=== PATIENT | female | born 2000 | race Two or more races ===

== ENCOUNTER 2021-11-23 13:10 | Observation (INO) | payer SELFPAY ==
[~2021-11-23] VITALS: Ht 167.6 cm; Wt 114.8 kg
[2021-11-23 13:12] VITALS: BP 146/67
[2021-11-23 14:42] LABS: Basophils # (auto) 0 10 ^3/uL (0-0.2); Basophils % (auto) 0.2 % (0.0-2.0); Eosinophils # (auto) 0.2 10 ^3/uL (0-0.8); Eosinophils % (auto) 1.4 % (0.0-7.0); Hematocrit 36.2 % (36.0-46.0); Hemoglobin 12.2 g/dL (12.2-16.2); Lymphocytes # (auto) 2.4 10 ^3/uL (0.4-5.4); Lymphocytes % (auto) 21.6 % (10.0-50.0); Mean Corpuscular Hemoglobin 29.8 pg (28.0-32.0); Mean Corpuscular Hgb Conc. 33.8 g/dL (32.0-36.0); Mean Corpuscular Volume 88.1 fL (80.0-100.0); Monocytes # (auto) 0.8 10 ^3/uL (0-1.3); Monocytes % (auto) 7.5 % (0.0-12.0); Neutrophils # (auto) 7.6 10 ^3/uL (1.6-8.6); Neutrophils % (auto) 69.3 % (37.0-80.0); Red Blood Cells 4.11 10^6/uL (4.0-5.20); Red Cell Distribution Width 14.2 % (11.8-14.3); White Blood Cell 10.9 10^3/uL (4.4-10.8)
[2021-11-23 14:57] LABS: Albumin 2.7 g/dL (3.4-5.0); Calcium 9.2 mg/dL (8.5-10.1); Potassium 3.8 mmol/L (3.5-5.1)
[2021-11-23 14:58] LABS: Urine Bacteria FEW /hpf (None Seen); Urine Blood Negative /uL (Negative); Urine Mucus FEW (None Seen); Urine Specific Gravity 1.027 (1.001-1.035); Urine WBC 2 /hpf (0 - 5)
[2021-11-23 15:00] LABS: BUN/Creatinine Ratio 15.6; Bilirubin, Total 0.1 mg/dL (0.2-1.0); Total Protein 7.4 g/dL (6.4-8.2)
[2021-11-23 15:01] LABS: INR 0.96 (0.9-1.15); Partial Thromboplastin Time 26.1 sec (23.6-33.0)
[2021-11-23 15:20] LABS: Alcohol, Urine < 3.0 mg/dL (0-10); Amphetamine Screen, Urine NEGATIVE (NEGATIVE); Barbiturate Scree,Urine NEGATIVE (NEGATIVE); Benzodiazephine Screen, Urine NEGATIVE (NEGATIVE); Cannabinoid Screen, Urine NEGATIVE (NEGATIVE); Cocaine Screen, Urine NEGATIVE (NEGATIVE); Opiate Scree,Urine NEGATIVE (NEGATIVE); Phencyclidine Screen, Urine NEGATIVE (NEGATIVE)
[2021-11-24 07:07] LABS: RPR Non Reactive (Non Reactive)
[2021-11-24 08:06] LABS: Rubella Antibodies, IgG 1.86 index (Immune >0.99)
== END 2021-11-23 16:05 | disposition home or self-care (01) ==
LOC: ER 13:10 → LDRP 13:15
PROVIDERS: ADMIT Obstetrics & Gynecology; ATTEND Obstetrics & Gynecology
DX: O26.892 Other specified pregnancy related conditions, second trimester (principal); R10.9 Unspecified abdominal pain; R05.9 Cough, unspecified; Z3A.22 22 weeks gestation of pregnancy; Z79.899 Other long term (current) drug therapy
CPT/HCPCS: 36415; 59025; 76805; 80053; 80307; 81001; 81002; 83036; 85025; 85610; 85730; 86592; 86703; 86762; 86850; 86900; 86901; 87340; 87491; 87591; 94760; 99284; G0378

== ENCOUNTER 2022-02-17 11:20 | Observation (INO) | payer MEDICAID ==
[2022-02-17] MEDS ORDERED: PRENCAP87 OR (12:52)
== END 2022-02-17 13:04 | disposition home or self-care (01) ==
LOC: LDRP 11:20 → UNDOADMOB 11:20 → LDRP 12:08
PROVIDERS: ADMIT Obstetrics & Gynecology; ATTEND Obstetrics & Gynecology
DX: O62.9 Abnormality of forces of labor, unspecified (principal); O26.893 Other specified pregnancy related conditions, third trimester; R10.2 Pelvic and perineal pain; O36.63X0 Maternal care for excessive fetal growth, third trimester, not applicable or unspecified; Z3A.34 34 weeks gestation of pregnancy
CPT/HCPCS: 59025; 81002; G0378

== ENCOUNTER 2022-02-20 02:23 | Observation (INO) | payer MEDICAID ==
[~2022-02-20] VITALS: Ht 167.6 cm; Wt 126.6 kg
[~2022-02-20 02:23] MED LIST: PRENCAP87 OR
[2022-02-20] MEDS: TERBUTALINE SULFATE 1 MG/ML 1ML VIAL SC SCH ×3 (03:28→04:46)
== END 2022-02-20 05:27 | disposition home or self-care (01) ==
LOC: LDRP 02:23
PROVIDERS: ADMIT Obstetrics & Gynecology; ATTEND Obstetrics & Gynecology
DX: O60.03 Preterm labor without delivery, third trimester (principal); Z3A.35 35 weeks gestation of pregnancy
CPT/HCPCS: 59025; 76815; 76817; 81002; 82948; 82962; 96372; G0378; J3105

== ENCOUNTER 2022-02-24 11:19 | Observation (INO) | payer MEDICAID | END 2022-02-24 15:15 | disposition home or self-care (01) | LOC: LDRP 11:19 → UNDOADMOB 11:26 → LDRP 11:26 | PROVIDERS: ADMIT Obstetrics & Gynecology; ATTEND Obstetrics & Gynecology | DX: O60.03 Preterm labor without delivery, third trimester (principal); O99.891 Other specified diseases and conditions complicating pregnancy; M54.9 Dorsalgia, unspecified; O26.893 Other specified pregnancy related conditions, third trimester; R10.2 Pelvic and perineal pain; Z3A.36 36 weeks gestation of pregnancy | CPT/HCPCS: 59025; 76818; 81002; 94760; G0378 ==

== ENCOUNTER 2022-03-03 06:56 | Inpatient (IN) | payer MEDICAID ==
[~2022-03-03] VITALS: Ht 167.6 cm; Wt 127.0 kg
[2022-03-03] MEDS ORDERED: WITCH HAZEL-GLYCERIN PAD TOP PRN (07:30)
[2022-03-03] MEDS ORDERED: PROMETHAZINE HCL 25 MG/ML 1ML IV PRN (07:30)
[2022-03-03] MEDS ORDERED: LIDOCAINE 2%HCL (LOCAL ANESTH.) INJ 10ml MDV IJ PRN (07:30)
[2022-03-03] MEDS ORDERED: PHISODERM TOP SOLN 240ML BTL TOP PRN (07:30)
[2022-03-03] MEDS ORDERED: LACTATED RINGER'S 1,000 ML IV SCH (07:30)
[2022-03-03] MEDS ORDERED: BUTORPHANOL TARTRATE 2 MG/1 ML VIAL IV PRN ×2 (07:30)
[2022-03-03] MEDS ORDERED: DERMOPLAST 60ML BOTTLE TOP PRN (07:30)
[2022-03-03 08:24] LABS: Basophils # (auto) 0 10 ^3/uL (0-0.2); Basophils % (auto) 0.5 % (0.0-2.0); Eosinophils # (auto) 0.1 10 ^3/uL (0-0.8); Eosinophils % (auto) 1.3 % (0.0-7.0); Hematocrit 38.3 % (36.0-46.0); Hemoglobin 12.6 g/dL (12.2-16.2); Lymphocytes # (auto) 2.1 10 ^3/uL (0.4-5.4); Lymphocytes % (auto) 20.8 % (10.0-50.0); Mean Corpuscular Hemoglobin 28.9 pg (28.0-32.0); Mean Corpuscular Hgb Conc. 32.9 g/dL (32.0-36.0); Mean Corpuscular Volume 87.9 fL (80.0-100.0); Monocytes # (auto) 0.6 10 ^3/uL (0-1.3); Monocytes % (auto) 6.1 % (0.0-12.0); Neutrophils # (auto) 7.2 10 ^3/uL (1.6-8.6); Neutrophils % (auto) 71.3 % (37.0-80.0); Nucleated Red Blood Cells % 0.1 %; Red Blood Cells 4.36 10^6/uL (4.0-5.20); Red Cell Distribution Width 14.5 % (11.8-14.3)
[2022-03-03 08:25] LABS: Urine Bacteria FEW /hpf (None Seen); Urine Blood TRACE /uL (Negative); Urine Specific Gravity 1.014 (1.001-1.035); Urine WBC 2 /hpf (0 - 5)
[2022-03-03] MEDS ORDERED: LACT. RINGERS/OXYTOCIN 20UNITS 500 ML IV ONE ×2 (08:30→09:00)
[2022-03-03] MEDS ORDERED: METHYLERGONOVINE MALEATE 0.2 MG/ML AMP IM PRN (08:30)
[2022-03-03] MEDS ORDERED: miSOPROStol 100 mcg TAB PR PRN (08:30)
[2022-03-03] MEDS ORDERED: CARBOPROST TROMETHAMINE 250 MCG/1ML VIAL IM ONE (08:30)
[2022-03-03] MEDS ORDERED: miSOPROStol 100 mcg TAB SL PRN (08:30)
[2022-03-03 08:45] LABS: INR 0.92 (0.9-1.15); Partial Thromboplastin Time 28.2 sec (24.6-33.4)
[2022-03-03] MEDS: LACTATED RINGER'S 1,000 ML IV SCH ×3 (08:56→20:31)
[2022-03-03 09:14] LABS: Albumin 2.5 g/dL (3.4-5.0); Calcium 8.6 mg/dL (8.5-10.1); Potassium 3.8 mmol/L (3.5-5.1)
[2022-03-03 09:18] LABS: Amphetamine Screen, Urine NEGATIVE (NEGATIVE); Barbiturate Scree,Urine NEGATIVE (NEGATIVE); Benzodiazephine Screen, Urine NEGATIVE (NEGATIVE); Cannabinoid Screen, Urine NEGATIVE (NEGATIVE); Cocaine Screen, Urine NEGATIVE (NEGATIVE); Opiate Scree,Urine NEGATIVE (NEGATIVE); Phencyclidine Screen, Urine NEGATIVE (NEGATIVE)
[2022-03-03 09:18] LABS: BUN/Creatinine Ratio 10.3; Bilirubin, Total 0.2 mg/dL (0.2-1.0); Total Protein 6.5 g/dL (6.4-8.2)
[2022-03-03] MEDS ORDERED: TERBUTALINE SULFATE 1 MG/ML 1ML VIAL SC PRN (10:45)
[2022-03-03] MEDS: LACT. RINGERS/OXYTOCIN 20UNITS 1,000 ML IV SCH ×2 (11:57→23:57)
[2022-03-03] MEDS ORDERED: LIDOCAINE 2%HCL (LOCAL ANESTH.) INJ 10ml MDV ONE (12:51)
[2022-03-03] MEDS ORDERED: ePHEDrine SULFATE 50 MG/ML AMP IV ONE (15:00)
[2022-03-03] MEDS ORDERED: LACTATED RINGER'S 1,000 ML IV ONE (15:00)
[2022-03-03] MEDS ORDERED: NALOXONE HCL 0.4 MG/ML VIAL IV ONE (15:00)
[2022-03-03] MEDS ORDERED: ROPIVACAINE HCL 200 ML EPI SCH (15:00)
[2022-03-03] MEDS ORDERED: fentaNYL CITRATE 100 MCG/2 ML VL IV ONE (15:00)
[2022-03-03] MEDS ORDERED: LIDOCAINE HCL 2 %PF INJ 10ML AMP IJ ONE (15:00)
[2022-03-03] MEDS ORDERED: AMPICILLIN SOD 2GM INJ 2 GM in SODIUM CHL 0.9% 100 ML IV ONE (23:00)
[2022-03-04] MEDS ORDERED: AMPICILLIN INJ 1 GM in SODIUM CHL 0.9% 50 ML IV SCH (03:00)
[2022-03-04] MEDS: LACTATED RINGER'S 1,000 ML IV SCH (03:41)
[2022-03-04] MEDS ORDERED: ACETAMINOPHEN 325 MG TAB PO PRN (06:00)
[2022-03-04] MEDS ORDERED: ONDANSETRON ODT 4 MG TAB PO PRN (06:00)
[2022-03-04 06:06] LABS: RPR Non Reactive (Non Reactive)
[2022-03-04] MEDS: IBUPROFEN 600 MG TAB PO PRN ×2 (06:52→16:12)
[2022-03-04] MEDS ORDERED: ceFAZolin 1GM/50ML 50 ML IV SCH (07:00)
[2022-03-04 09:00] VITALS: BP 125/79
[2022-03-04 11:00] VITALS: BP 127/68
[2022-03-04] MEDS: ceFAZolin 1GM/50ML 50 ML IV SCH ×2 (11:18→19:21)
[2022-03-04 15:10] VITALS: BP 126/58
[2022-03-04] MEDS ORDERED: DOCUSATE SOD 100 MG CAP PO SCH (22:00)
[2022-03-05] MEDS: ceFAZolin 1GM/50ML 50 ML IV SCH (03:25)
[2022-03-05] MEDS: IBUPROFEN 600 MG TAB PO PRN ×2 (03:26→11:12)
[2022-03-05 06:45] VITALS: BP 131/66
[2022-03-05 11:00] VITALS: BP 120/55
[2022-03-05 13:00] VITALS: BP 124/68
== END 2022-03-05 13:50 | disposition home or self-care (01) | DRG 560 ==
LOC: LDRP 06:56 → OBSVTOIN 07:26 → LDRP 07:27
PROVIDERS: ADMIT Obstetrics & Gynecology; ATTEND Obstetrics & Gynecology
PROC: 10E0XZZ Delivery of Products of Conception, External Approach (ICD-10-PCS; principal; 2022-03-04)
PROC: 0KQM0ZZ Repair Perineum Muscle, Open Approach (ICD-10-PCS; 2022-03-04)
PROC: 3E0R3BZ Introduction of Anesthetic Agent into Spinal Canal, Percutaneous Approach (ICD-10-PCS; 2022-03-04)
PROC: 00HU33Z Insertion of Infusion Device into Spinal Canal, Percutaneous Approach (ICD-10-PCS; 2022-03-04)
DX: O42.913 Preterm premature rupture of membranes, unspecified as to length of time between rupture and onset of labor, third trimester (principal); Z37.0 Single live birth; O60.14X0 Preterm labor third trimester with preterm delivery third trimester, not applicable or unspecified; Z20.822 Contact with and (suspected) exposure to COVID-19; Z3A.37 37 weeks gestation of pregnancy; O76 Abnormality in fetal heart rate and rhythm complicating labor and delivery; O70.1 Second degree perineal laceration during delivery
CPT/HCPCS: 36415; 59025; 59409; 62282; 76815; 80053; 80307; 81001; 81002; 84112; 85025; 85610; 85730; 86592; 86850; 86900; 86901; 94760; 96360; 96361; 96365; 96366; 96372; G0378; J0690; J2001; J2590

== ENCOUNTER → 2023-07-01 | Emergency (ER) | payer MEDICAID | END | disposition left against medical advice (07) | LOC: ER 02:02 | DX: R50.9 Fever, unspecified (principal); Z53.21 Procedure and treatment not carried out due to patient leaving prior to being seen by health care provider ==